=== PATIENT | female | born 1970 | race Caucasian/White ===

== ENCOUNTER 2017-01-06 14:15 | Inpatient (IN) | payer OTHER ==
[~2017-01-06] VITALS: Ht 157.5 cm; Wt 64.4 kg
--- NOTE | ~2017-01-06 | HP ---
Unit #: [id number] #: [id number] Patient: BIBIANA FOSTER [id number] [place] [address] [id number] MR#: [id number] NAME: BIBIANA FOSTER ROOM: [facility] Age: 46 Sex: F Admission Date: 01/06/2017 : 1970 Attending Physician: Aníbal Yen M.D. Admitting Physician: Aníbal Yen M.D. Primary Care Physician: Primary Care Physician No HISTORY AND PHYSICAL HISTORY OF PRESENT ILLNESS Bibiana is a 46 year old, admitted to [address] [place] [address] with depression after verbalizing wanting to hurt herself. PAST MEDICAL HISTORY 1. History of migraines. 2. History of withdrawal seizures (benzodiazepines). PAST SURGICAL HISTORY 1. Pelvic lap x2. 2. Cervical disc. ALLERGIES Glucocorticoids. SOCIAL HISTORY She denies cigarettes, alcohol, or illicit drug use. FAMILY HISTORY Medically noncontributory. REVIEW OF SYSTEMS CONSTITUTIONAL: No fever or chills. HEENT: Denies any sore throat, ear pain or runny nose. CARDIOVASCULAR: Denies chest pain, irregular heart rhythm or palpitations. CHEST: Denies shortness of breath or cough. No hemoptysis. GASTROINTESTINAL: Denies nausea, vomiting, diarrhea or chronic constipation. ENDOCRINE: Denies history of increased thirst or urination. No recent significant weight loss or gain. GENITOURINARY: Denies dysuria, frequency, or hematuria. SKIN: Denies any rashes. HEMATOLOGIC: Denies history of increased bleeding or bruising. MUSCULOSKELETAL: Denies any hot, swollen joints. No generalized muscle pain. NEUROLOGIC: Denies problems with vision or speech. No frequent, severe headaches. No numbness, tingling or weakness in any extremities. Denies loss of bladder or bowel control. CURRENT MEDICATIONS 1. Klonopin 0.5 mg q.6 h p.r.n. 2. Wellbutrin XL 150 mg daily 3. Melatonin 5 mg q.h.s. p.r.n. Unit #: [id number] #: [id number] Patient: BIBIANA FOSTER 4. Milk of magnesia p.r.n. 5. Maalox p.r.n. 6. Tylenol p.r.n. 7. Imitrex 50 mg p.o. at onset of headache, may repeat in two hours x1 dose PHYSICAL EXAMINATION GENERAL: Alert, well-nourished, no apparent distress. VITAL SIGNS: Blood pressure 140/92, heart rate 80, respirations 16, temperature 98.6. WEIGHT: 142 pounds. HEIGHT: 5 feet 2 inches. SKIN: Warm and dry without rash or lesion. HEENT: Normocephalic. TMs not viewed. Oral and nasal passages clear. Conjunctivae clear. PERRLA. EOMs intact. NECK: Supple without lymphadenopathy or thyromegaly. HEART: Regular rate and rhythm without murmur. LUNGS: Clear. ABDOMEN: Soft, nontender. : Not done. EXTREMITIES: No evidence of cyanosis, clubbing or edema. Moves all without focal deficit. NEUROLOGICAL: Grossly within normal limits. Cranial Nerves: II: Visual saunders are intact. III, IV AND : Extraocular movements are intact. Pupils are equal, round and reactive to light. V: Facial sensation is grossly normal. VII: Facial movements and expression are normal. VIII: Auditory acuity grossly intact. IX, X: Uvula is midline. Phonation is normal. XI: Patient shrugs shoulders and turns head normally. XII: Tongue protrudes in the midline. Sensory and Motor Function: Sensory and motor sensation is grossly normal. Motor: moves all extremities well. Coordination: Gait is normal. Deep Tendon Reflexes: Intact. IMPRESSION Psychiatric admission. RECOMMENDATIONS Psychiatric, per psychiatrist. MEDICAL I see no contraindications to participating in facility's activities. MEDICAL PROGNOSIS Good. MEDICAL CONDITION Stable. Dictated by... Devendra VelaAClara. for Esmer Hinds/ruben Unit #: [id number] #: [id number] Patient: BIBIANA FOSTER TD: 01/08/2017 06:27 JOB #: [id number] HISTORY AND PHYSICAL Page 1 of 1 X Flori Valadez HISTORY AND PHYSICAL
--- NOTE | ~2017-01-06 | PN ---
Unit #: [id number] #: [id number] Patient: MOODY FOSTER [id number] [facility] [address] [place] [address] [id number] MR#: [id number] NAME: MOODY FOSTER ROOM: [facility] Age: 46 Sex: F Admission Date: 01/06/2017 : 1970 Attending Physician: Aníbal Yen M.D. Admitting Physician: Aníbal Yen M.D. Primary Care Physician: Primary Care Physician Kenia MEJIA PROGRESS NOTES DATE 01/08/2017 DISCUSSION The patient is today continuing to complain of headache unresponsive to Imitrex. She is requesting reinitiation of previously prescribed Adderall. Her drug screen is negative, and I will consider initiation of this medication in the next day or so with probable discharge no later than . Dictated by... Aníbal Yen M.D. CB/bzserafin TD: 01/08/2017 14:24 JOB #: [id number] ROBERTO PROGRESS NOTES Page 1 of 1 X Aníbal Yen MD X PROGRESS NOTE
--- NOTE | ~2017-01-06 | PA ---
Unit #: [id number] #: [id number] Patient: MOODY FOSTER [id number] [facility] [address] [place] [address] [id number] I MR#: [id number] NAME: MOODY FOSTER ROOM: [facility] Age: 46 Sex: F Admission Date: 01/06/2017 : 1970 Date of Assessment: 01/07/2017 Attending Physician: Aníbal Yen M.D. Admitting Physician: Aníbal Yen M.D. Primary Care Physician: Primary Care Physician No PSYCHIATRIC ASSESSMENT IDENTIFYING INFORMATION The patient is a 46-year-old white female, admitted to the [address] [place] [address] unit, complaining of depressed mood and suicidal ideation. INFORMANT(S) Patient, reliability is good. CHIEF COMPLAINT None given. HISTORY OF PRESENT ILLNESS The patient is a 46-year-old white female, admitted for increase in depression and anxiety. The patient reports that she has recently been unemployed after leaving a high pressured position in [place]. 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 She has a LANI from [facility]. She has never and has no children. She is currently living with a friend in the [place] area. The patient was reporting "dark thoughts yesterday, including suicidal ideation." she reports that she has been on selective serotonin reuptake inhibitors in the past but reports that she had a bad response to these medications. She does report that her mother has done well on Wellbutrin in the past. Her mother has recently . The patient denies use of any psychoactive substances. She does report a history of positive response to alprazolam and clonazepam while living in [place]. PAST PSYCHIATRIC HISTORY Is as above. PAST MEDICAL HISTORY Significant for history of migraine headache. MEDICATIONS None at this time, the patient has previously prescribed Adderall, Klonopin, Atarax, Celexa, and Imitrex. ALLERGIES Liquid steroids. FAMILY HISTORY The patient's mother suffered from depression. SOCIAL HISTORY The patient lives with her friend, she has a LANI from [facility] Unit #: [id number] #: [id number] Patient: MOODY FOSTER [place], and attended [employer] as an undergraduate. She has never and has no children. She is (1) psychoactive substances. MENTAL STATUS EXAM At this time reveals the patient to be a well-developed, well-nourished white female, appearing her stated age. She is in no physical distress at the time of the examination. She is awake, alert, and oriented in all spheres. Her mood is mildly dysphoric. Her affect is congruent. Speech is generally relevant and coherent. There are no gross deficits to memory or cognition noted. Intelligence is judged to be in the average range based on fund of knowledge. The patient is cooperative throughout the interview. She denies current suicidal or homicidal ideation or psychotic features. Judgment and insight appear to be intact. ASSETS Motivation for change. LIABILITIES Lack of resources and unemployment. DIAGNOSTIC IMPRESSION [place] I: Major depressive disorder, recurrent, moderate. [place] II: [place] III: Migraine headaches by history. [place] IV: [place] V: TREATMENT PLAN The patient remains hospitalized for safety and stabilization and a trial of Wellbutrin XL will be initiated and the patient will also be started on low dose clonazepam to be given on an as needed basis. She will participate in appropriate richards and milieu activities. ESTIMATED LENGTH OF STAY Her estimated length of stay in the hospital [id number] days. Dictated by... Aníbal Yen M.D. CB/ruben TD: 01/08/2017 05:02 JOB #: [id number] Unit #: [id number] #: [id number] Patient: MOODY FOSTER PSYCHIATRIC ASSESSMENT Page 1 of 1 X Aníbal Yen MD X PSYCHIATRIC ASSESSMENT
--- NOTE | ~2017-01-06 | DS ---
Unit #: [id number] #: [id number] Patient: MOODY FOSTER [id number] [facility] [address] [place] [address] [id number] I MR#: [id number] NAME: MOODY FOSTER ROOM: [facility] Age: 46 Sex: F Admission Date: 01/06/2017 : 1970 Discharge Date: 01/09/2017 Attending Physician: Aníbal Yen M.D. Primary Care Physician: Primary Care Physician No DISCHARGE SUMMARY REASON FOR ADMISSION The patient is a 46-year-old white female, admitted to the [facility] unit with complaints of depressed mood and suicidal ideation. HOSPITAL COURSE The patient was admitted to the [facility] unit and placed on suicide precautions, given history of poor response and discharged on selective serotonin reuptake inhibitors. The patient was begun on Wellbutrin XL 150 mg daily which she tolerated without complaint. P.r.n. trazodone was also added. The patient tolerated these medications well and showed improvement in mood. She did request reinitiation of Adderall XR which she has taken in the past and this medication was re-initiated the dose of 20 mg daily. By 01/09/2017, the patient was in bright spirits and requested discharge and it was so ordered. FINAL DIAGNOSES Major depressive disorder, recurrent, moderate; attention deficit disorder; migraine headache. DISPOSITION ON DISCHARGE The patient is discharged on the following medications: Klonopin 0.5 mg q.6 hours p.r.n. anxiety, Wellbutrin XL 150 mg q.a.m. for depression, Adderall XR 20 mg daily for attention deficit disorder, and Imitrex 50 mg p.r.n. migraine headache. DISCHARGE INSTRUCTIONS No dietary or physical restrictions were placed on the patient at the time of discharge. FOLLOWUP Followup will take place through the auspices of community mental health resources. PROGNOSIS The patient's prognosis is considered fair. Dictated by... Aníbal Yen M.D. KATELYNN/mariama TD: 01/09/2017 19:54 Unit #: [id number] #: [id number] Patient: MOODY FOSTER JOB #: [id number] DISCHARGE SUMMARY Page 1 of 1 X Aníbal Yen MD DISCHARGE SUMMARY
[2017-01-07 09:37] LABS: BASOPHIL% 1.1 % (0-2.5); EOSINOPHIL# 0.3 X10e3 (0-0.7); EOSINOPHIL% 7.4 % (0.0-7.0); HEMATOCRIT 37.9 % (35.0-45.0); HEMOGLOBIN 12.3 gm/dL (12.0-16.0); LYMPHOCYTE# 1.8 X10e3 (1.0-3.5); LYMPHOCYTE% 43.9 % (17.0-45.0); MEAN CELL VOLUME 84.1 FL (83-96); MEAN CORPUSCULAR HEMOGLOBIN 27.3 PG (28-34); MEAN CORPUSCULAR HGB CONC 32.5 g/dL (30-36); MEAN PLATELET VOLUME 8.3 FL (6.5-11.5); MONOCYTE# 0.4 X10e3 (0-1.0); NEUTROPHIL# 1.5 X10e3 (1.5-7.1); NEUTROPHIL% 37.6 % (40-75); PLATELET COUNT 322 X10e3 (140-420); RED BLOOD COUNT 4.51 X10e (3.90-5.30); RED CELL DISTRIBUTION WIDTH 15.2 % (11.0-15.5); WHITE BLOOD COUNT 4.1 X10e3 (4.0-10.5)
[2017-01-07 09:44] LABS: DIFF IND NO
[2017-01-07 10:45] LABS: ALBUMIN SERUM 3.9 g/dL (3.5-5.0); BILIRUBIN,TOTAL 0.3 mg/dL (0.2-2.0); BUN/CREATININE RATIO 12.85; CALCIUM SERUM 8.9 mg/dL (8.4-10.2); CREATININE SERUM 0.7 mg/dL (0.6-1.4); GLOM FILT RATE Estimated 104.6 mL/min (>60); POTASSIUM 4.2 mmol/L (3.5-5.1); PROTEIN TOTAL SERUM 6.4 g/dL (6.0-8.3)
[2017-01-07 12:43] LABS: URINE APPEARANCE CLOUDY; URINE BILIRUBIN NEG (NEG); URINE BLOOD NEG (NEG); URINE COLOR YELLOW; URINE GLUCOSE NEG (NEG); URINE KETONE TRACE (NEG); URINE LEUKOCYTE ESTERASE NEG (NEG); URINE NITRATE NEG (NEG); URINE PROTEIN NEG (NEG); URINE SPECIFIC GRAVITY 1.019 (1.003-1.035); URINE UROBILINOGEN 0.2 MG/DL (NEG)
[2017-01-07 14:05] LABS: AMPHETAMINE NEG (NEG); BARBITURATES NEG (NEG); BENZODIAZEPINES NEG (NEG); COCAINE NEG (NEG); MARIJUANA NEG (NEG); OPIATES NEG (NEG); TRICYCLIC ANTIDEPRESSANTS NEG (NEG); U METHADONE NEG (NEG)
== END 2017-01-09 17:40 | disposition home or self-care (01) | DRG 885 ==
LOC: P2L 18:35
PROVIDERS: Specialist
DX: F33.1 Major depressive disorder, recurrent, moderate (principal); R45.851 Suicidal ideations; F98.8 Other specified behavioral and emotional disorders with onset usually occurring in childhood and adolescence; G43.909 Migraine, unspecified, not intractable, without status migrainosus
CPT/HCPCS: 80053; 80307; 81003; 84703; 85025